=== PATIENT | female | born 1965 | race Caucasian/White ===

== ENCOUNTER 2018-02-08 15:50 | Emergency (ER) | payer BC ==
[~2018-02-08] VITALS: Ht 157.5 cm; Wt 69.0 kg
[~2018-02-08 15:50] MED LIST: IBUP-232 PO; LEVO75TA3 PO; PARO20TA3 PO; VENL75TA PO
[2018-02-08 15:54] VITALS: BP 163/86; PULSE 70; RESP 20; TEMP 97.9; O2SAT 99
[2018-02-08 18:43] LABS: AUTOMATED NEUTROPHIL # 4.4 TH/MM3 (1.8-7.7); BASOPHIL % 0.2 % (0.0-2.0); EOSINOPHIL % 0.2 % (0.0-4.0); HEMATOCRIT 37.6 % (35.0-46.0); HEMOGLOBIN 13.4 GM/DL (11.6-15.3); LYMPH % 26.6 % (9.0-44.0); LYMPHOCYTE # 1.8 TH/MM3 (1.0-4.8); MEAN CELL VOLUME 87.6 FL (80.0-100.0); MEAN CORPUSCULAR HEMOGLOBIN 31.1 PG (27.0-34.0); MEAN CORPUSCULAR HGB CONC 35.5 % (32.0-36.0); MEAN PLATELET VOLUME 9.2 FL (7.0-11.0); MONO % 8.3 % (0.0-8.0); MONOCYTE # 0.6 TH/MM3 (0-0.9); NEUT % 64.7 % (16.0-70.0); PLATELET COUNT 278 TH/MM3 (150-450); RED CELL DISTRIBUTION WIDTH 13.9 % (11.6-17.2); WHITE BLOOD COUNT 6.8 TH/MM3 (4.0-11.0)
[2018-02-08 19:01] LABS: ALT (GPT) 27 U/L (10-53)
[2018-02-08 19:04] LABS: ALKALINE PHOSPHATASE 92 U/L (45-117); TOTAL BILIRUBIN ADULT 0.2 MG/DL (0.2-1.0); TOTAL PROTEIN 7.6 GM/DL (6.4-8.2)
[2018-02-08 19:06] LABS: ALBUMIN 3.6 GM/DL (3.4-5.0); AST (GOT) 23 U/L (15-37); BLOOD UREA NITROGEN 23 MG/DL (7-18); CALCIUM 9.7 MG/DL (8.5-10.1); CHLORIDE 108 MEQ/L (98-107); CREATININE 0.75 MG/DL (0.50-1.00); GLOMERULAR FILTRATION RATE 81 ML/MIN (>89); GLUCOSE,RANDOM 84 MG/DL (74-106); SODIUM (NA) 143 MEQ/L (136-145)
[2018-02-08] MEDS ORDERED: IOHEXOL 350 MG/ML 10 ML VIAL (for RAD DIAG) IVCONTRAST ONE (19:27)
[2018-02-08 19:31] VITALS: BP 158/92; PULSE 62; RESP 17; O2SAT 99
--- NOTE | 2018-02-08 19:53 | RADRPT ---
EXAM DATE: 02/08/2018 7:26 PM EDT AGE/SEX: 52 years / Female INDICATIONS: Painful lump to left chest for three days. CLINICAL DATA: This is the patient's initial encounter. Patient reports that signs and symptoms have been present for 3 days and indicates a pain score of 3/10. MEDICAL/SURGICAL HISTORY: None. None. RADIATION DOSE: 6.83 CTDI (mGy) COMPARISON: No prior [place] exams available for comparison. TECHNIQUE: Multiple contiguous axial images were obtained through the chest during bolus infusion of 71 ml Omnipaque 350 (iohexol) nonionic water-soluble contrast as a single exam dose. Images were obtained in suspended respiration using multiple row detector helical technique. Using automated exp osure control and adjustment of the mA and/or kV according to patient size, radiation dose was kept a s low as reasonably achievable to obtain optimal diagnostic quality images. FINDINGS: Lungs: No consolidation or pneumothorax. No concerning pulmonary nodule is identified. Mediastinum: The heart and great vessels demonstrate no acute abnormality. No lymphadenopathy is pre sent. Pleurae: No pleural effusion or pleural thickening. Axillae: No lymphadenopathy. Musculoskeletal: The bones and soft tissues demonstrate no acute abnormality. Miscellaneous: A marker was placed on the medial left superior chest. At this location there is mild skin thickening and a 9 mm subcutaneous nodule with surrounding inflammation in the subcutaneous fat . Inflammatory changes are limited to the subcutaneous tissues but extend near the anterior aspect of the pectoralis major muscle but does not appear to involve the muscle or extend into any of the deep er tissues. There are calcified stones in the gallbladder. A small hiatal hernia is present. CONCLUSION: 1. The painful lump corresponds to skin thickening and a 9 mm subcutaneous nodule at the medial supe rior left chest wall. There is surrounding inflammatory change in the subcutaneous fat. Etiology is u ncertain but this is very likely represents some sort of inflammatory or infectious lesion. Suggest f ollow-up to confirm resolution. 2. Nonacute findings include cholelithiasis and small hiatal hernia. Electronically signed by: Nate Forbes MD 02/08/2018 7:52 PM EDT
[2018-02-08] MEDS ORDERED: CLIN300C5 PO (20:18)
--- NOTE | 2018-02-08 20:18 | PD ---
HPI Chief Complaint: Skin Problem Time Seen by Provider: 17:36 Travel History International Travel<30 days: No Contact w/Intl Traveler<30days: No Traveled to known affect area: No History of Present Illness HPI Patient is a 52-year-old female who comes in complaining of a painful lump to her chest wall. She says it started 3 or 4 days ago and has become more painful. She has not taken anything for the pain. She has not noticed any oozing of pus from the area. She denies fever chills. She has never had this before. Severity is mild to moderate. PFSH Past Medical History Anxiety: Yes Diminished Hearing: No Thyroid Disease: Yes Tetanus Vaccination: > 5 Years Influenza Vaccination: No ?: Not Menopausal: Yes : 2 Para: 1 Miscarriage: 1 Ovarian Cysts: Yes (L? REMOVED) Past Surgical History Appendectomy: Yes Social History Alcohol Use: No Tobacco Use: No Substance Use: No Allergies-Medications (Allergen,Severity, Reaction): Coded Allergies: No Known Allergies (Unverified Adverse Reaction, Unknown, 10/08/17) Reported Meds & Prescriptions Reported Meds & Active Scripts Active Effexor (Venlafaxine HCl) 75 Mg Tab 75 Mg PO Q12H Take 1/2 tablet twice daily x2 weeks, then increase to 1 tablet twice daily after Levothyroxine (Levothyroxine Sodium) 75 Mcg Tab 75 Mcg PO DAILY Review of Systems Except as stated in HPI: all other systems reviewed are Neg General / Constitutional: No: Fever, Chills HENT: No: Headaches, Lightheadedness Cardiovascular: No: Chest Pain or Discomfort Respiratory: No: Shortness of Breath Gastrointestinal: No: Nausea, Vomiting Skin: Positive Lesions Neurologic: No: Weakness, Dizziness Physical Exam Narrative GENERAL: Awake and alert, in no acute distress. SKIN: Hard nodule on the left upper chest wall with mild surrounding erythema. There is no fluctuance or induration. HEAD: Atraumatic. Normocephalic. EYES: Pupils equal and round. No scleral icterus. ENT: Mucous membranes pink and moist. NECK: Trachea midline. No JVD. CARDIOVASCULAR: Regular rate and rhythm. No murmur appreciated. RESPIRATORY: No accessory muscle use. Clear to auscultation. Breath sounds equal bilaterally. GASTROINTESTINAL: Abdomen soft, non-tender, nondistended. MUSCULOSKELETAL: No obvious deformities. No clubbing. No cyanosis. No edema. NEUROLOGICAL: Awake and alert. No obvious cranial nerve deficits. Motor grossly within normal limits. Normal speech. PSYCHIATRIC: Appropriate mood and affect; insight and judgment normal. Data Data Last Documented VS Vital Signs Date Time Temp Pulse Resp B/P (MAP) Pulse Ox O2 Delivery O2 Flow Rate FiO2 02/08/18 19:31 62 17 158/92 (114) 99 Room Air 02/08/18 15:54 97.9 Orders Orders Complete Blood Count With Diff (02/08/18 17:54) Comprehensive Metabolic Panel (02/08/18 17:54) Ct Thorax/ Chest W Iv Contrast (02/08/18 ) Iv Access Insert/Monitor (02/08/18 17:54) Iohexol 350 Inj (Omnipaque 350 Inj) (02/08/18 19:27) Labs Laboratory Tests Test 02/08/18 18:00 White Blood Count 6.8 TH/MM3 Red Blood Count 4.30 MIL/MM3 Hemoglobin 13.4 GM/DL Hematocrit 37.6 % Mean Corpuscular Volume 87.6 FL Mean Corpuscular Hemoglobin 31.1 PG Mean Corpuscular Hemoglobin Concent 35.5 % Red Cell Distribution Width 13.9 % Platelet Count 278 TH/MM3 Mean Platelet Volume 9.2 FL Neutrophils (%) (Auto) 64.7 % Lymphocytes (%) (Auto) 26.6 % Monocytes (%) (Auto) 8.3 % Eosinophils (%) (Auto) 0.2 % Basophils (%) (Auto) 0.2 % Neutrophils # (Auto) 4.4 TH/MM3 Lymphocytes # (Auto) 1.8 TH/MM3 Monocytes # (Auto) 0.6 TH/MM3 Eosinophils # (Auto) 0.0 TH/MM3 Basophils # (Auto) 0.0 TH/MM3 CBC Comment DIFF FINAL Differential Comment Blood Urea Nitrogen 23 MG/DL Creatinine 0.75 MG/DL Random Glucose 84 MG/DL Total Protein 7.6 GM/DL Albumin 3.6 GM/DL Calcium Level 9.7 MG/DL Alkaline Phosphatase 92 U/L Aspartate Amino Transf (AST/SGOT) 23 U/L Alanine Aminotransferase (ALT/SGPT) 27 U/L Total Bilirubin 0.2 MG/DL Sodium Level 143 MEQ/L Potassium Level 4.0 MEQ/L Chloride Level 108 MEQ/L Carbon Dioxide Level 27.0 MEQ/L Anion Gap 8 MEQ/L Estimat Glomerular Filtration Rate 81 ML/MIN MDM Medical Decision Making Medical Screen Exam Complete: Yes Emergency Medical Condition: Yes Medical Record Reviewed: Yes Differential Diagnosis Enlarged lymph node versus abscess versus cellulitis Narrative Course Patient is a 52-year-old female comes in complaining of a lump to her left chest wall. Exam shows a tender nodule that is slightly erythematous. IV established, labs sent. Labs show no acute abnormalities. CT of the chest performed shows a nodule with surrounding inflammatory changes. Patient informed of the results. Last [address] 02/08/18 0000 Signed Impressions: CONCLUSION: 1. The painful lump corresponds to skin thickening and a 9 mm subcutaneous nod ule at the medial superior left chest wall. There is surrounding inflammatory c hange in the subcutaneous fat. Etiology is uncertain but this is very likely re presents some sort of inflammatory or infectious lesion. Suggest follow-up to c onfirm resolution. 2. Nonacute findings include cholelithiasis and small hiatal hernia. She will be discharged with a prescription for clindamycin. She has an appointment with her doctor on Sunday to follow-up. Advised return anytime for any worsening symptoms. Diagnosis Primary Impression: Lymph node enlargement Additional Impression: Cellulitis Qualified Codes: L03.313 - Cellulitis of chest wall Patient Instructions: Cellulitis (ED), General Instructions, Lymphadenopathy ( ED) Additional Instructions: Take all of your antibiotic. Follow-up with your doctor. Return to the ED as needed for any worsening symptoms. Scripts Clindamycin (Clindamycin) 300 Mg Cap 600 MG PO Q8H for Infection for 7 Days, #42 CAP 0 Refills Prov: Rahel Cantrell MD 02/08/18 Disposition: 01 DISCHARGE HOME Condition: Stable Rahel Cantrell MD Feb 08, 2018 20:18
== END 2018-02-08 20:31 | disposition home or self-care (01) ==
LOC: NEPD 15:50
DX: R59.9 Enlarged lymph nodes, unspecified (principal); L03.313 Cellulitis of chest wall; K80.20 Calculus of gallbladder without cholecystitis without obstruction; K44.9 Diaphragmatic hernia without obstruction or gangrene; F41.9 Anxiety disorder, unspecified; E07.9 Disorder of thyroid, unspecified; Z79.899 Other long term (current) drug therapy
CPT/HCPCS: 71260; 80053; 85025; 99284; Q9967

== ENCOUNTER 2018-02-13 11:32 | Emergency (ER) | payer BC ==
[~2018-02-13] VITALS: Ht 157.5 cm; Wt 69.0 kg
[~2018-02-13 11:32] MED LIST changes: +CLIN300C5 PO; -IBUP-232 PO; -PARO20TA3 PO
[2018-02-13 11:41] VITALS: BP 128/75; PULSE 76; RESP 16; TEMP 98; O2SAT 97
--- NOTE | 2018-02-13 12:05 | PD ---
HPI Chief Complaint: Abdominal Pain Time Seen by Provider: 12:04 Travel History International Travel<30 days: Yes Contact w/Intl Traveler<30days: [place] Traveled to: [facility] Traveled to known affect area: No History of Present Illness HPI 52-year-old female came to the emergency room with history of epigastric pain for past 2 days that comes and goes. It feels like a tight knot in her epigastric region when the pain comes and makes a double over. The pain is 10 out of 10 when she gets the attack. In between the pain is about 6-7. Currently she describes the pain 7 out of 10. It is not radiating. Pain seems to get worse when she eats or drinks something. Patient says that a few years ago during an MRI she was told that she has gallstones in her gallbladder and sometime in future she may get an attack from that. No history of nausea vomiting. Vital signs otherwise stable. Patient was in the emergency room 4 days ago for some chest symptoms and a CAT scan of the chest showed an inflammation of her lymph node in the chest. She was discharged home on clindamycin. Patient is wondering if the clindamycin could be the reason for these symptoms. Patient says that she looked at the side effects of clindamycin and noticed that a lot of her symptoms were related to that. Vital signs were stable. [facility] Past Medical History Narrative Medical List of her past medical, surgical, social and family history is reviewed from the nursing note Anxiety: Yes Diminished Hearing: No Thyroid Disease: Yes ?: Unknown LMP: couple of years ago Menopausal: Yes : 2 Para: 1 Miscarriage: 1 Ovarian Cysts: Yes (L? REMOVED) Past Surgical History Appendectomy: Yes Social History Alcohol Use: No Tobacco Use: No Substance Use: No Allergies-Medications (Allergen,Severity, Reaction): Coded Allergies: No Known Allergies (Verified Adverse Reaction, Unknown, 02/13/18) Comments No known drug allergies Reported Meds & Prescriptions Reported Meds & Active Scripts Active Hydrocodone-Acetaminophen 5-325 mg Tab 1 Tab PO Q6H PRN Zofran Odt (Ondansetron Odt) 4 Mg Tab 4 Mg SL Q6HR PRN Colace (Docusate Sodium) 100 Mg Capsule 100 Mg PO BID Omeprazole 20 Mg Tab 20 Mg PO DAILY Clindamycin (Clindamycin HCl) 300 Mg Cap 600 Mg PO Q8H 7 Days Effexor (Venlafaxine HCl) 75 Mg Tab 75 Mg PO Q12H Take 1/2 tablet twice daily x2 weeks, then increase to 1 tablet twice daily after Levothyroxine (Levothyroxine Sodium) 75 Mcg Tab 75 Mcg PO DAILY Narrative Medication List of her home medications reviewed from the nursing note Review of Systems Except as stated in HPI: all other systems reviewed are Neg Gastrointestinal: Positive: Abdominal Pain Physical Exam Narrative GENERAL: Awake, alert, moderate distress SKIN: Focused skin assessment warm/dry. HEAD: Atraumatic. Normocephalic. EYES: Pupils equal and round. No scleral icterus. No injection or drainage. ENT: No nasal bleeding or discharge. Mucous membranes pink and moist. NECK: Trachea midline. No JVD. CARDIOVASCULAR: Regular rate and rhythm. No murmur appreciated. RESPIRATORY: No accessory muscle use. Clear to auscultation. Breath sounds equal bilaterally. GASTROINTESTINAL: Abdomen soft, moderate tenderness on deep palpation at the epigastric and right upper quadrant area, nondistended. Hepatic and splenic margins not palpable. MUSCULOSKELETAL: No obvious deformities. No clubbing. No cyanosis. No edema. NEUROLOGICAL: Awake and alert. No obvious cranial nerve deficits. Motor grossly within normal limits. Normal speech. PSYCHIATRIC: Appropriate mood and affect; insight and judgment normal. Data Data Last Documented VS Orders Orders Complete Blood Count With Diff (02/13/18 12:15) Comprehensive Metabolic Panel (02/13/18 12:15) Lipase (02/13/18 12:15) Urinalysis - C+S If Indicated (02/13/18 12:15) Us Abdomen Gallbladder (02/13/18 ) Iv Access Insert/Monitor (02/13/18 12:15) Ecg Monitoring (02/13/18 12:15) Oximetry (02/13/18 12:15) Pantoprazole Inj (Protonix Inj) (02/13/18 12:15) Sodium Chlor 0.9% 1000 Ml Inj (Ns 1000 M (02/13/18 12:15) Sodium Chloride 0.9% Flush (Ns Flush) (02/13/18 12:15) Ed Discharge Order (02/13/18 14:26) Labs Laboratory Tests Test 02/13/18 12:40 6/6/18 13:45 White Blood Count 8.6 TH/MM3 Red Blood Count 4.67 MIL/MM3 Hemoglobin 14.0 GM/DL Hematocrit 40.9 % Mean Corpuscular Volume 87.6 FL Mean Corpuscular Hemoglobin 30.0 PG Mean Corpuscular Hemoglobin Concent 34.2 % Red Cell Distribution Width 13.8 % Platelet Count 305 TH/MM3 Mean Platelet Volume 9.0 FL Neutrophils (%) (Auto) 77.9 % Lymphocytes (%) (Auto) 14.8 % Monocytes (%) (Auto) 6.9 % Eosinophils (%) (Auto) 0.1 % Basophils (%) (Auto) 0.3 % Neutrophils # (Auto) 6.7 TH/MM3 Lymphocytes # (Auto) 1.3 TH/MM3 Monocytes # (Auto) 0.6 TH/MM3 Eosinophils # (Auto) 0.0 TH/MM3 Basophils # (Auto) 0.0 TH/MM3 CBC Comment DIFF FINAL Differential Comment Blood Urea Nitrogen 23 MG/DL Creatinine 0.75 MG/DL Random Glucose 92 MG/DL Total Protein 7.8 GM/DL Albumin 3.8 GM/DL Calcium Level 10.1 MG/DL Alkaline Phosphatase 84 U/L Aspartate Amino Transf (AST/SGOT) 36 U/L Alanine Aminotransferase (ALT/SGPT) 34 U/L Total Bilirubin 0.5 MG/DL Sodium Level 140 MEQ/L Potassium Level 3.5 MEQ/L Chloride Level 104 MEQ/L Carbon Dioxide Level 25.1 MEQ/L Anion Gap 11 MEQ/L Estimat Glomerular Filtration Rate 81 ML/MIN Lipase 69 U/L Urine Color COLORLESS Urine Turbidity CLEAR Urine pH 6.0 Urine Specific [place] 1.004 Urine Protein NEG mg/dL Urine Glucose (UA) NEG mg/dL Urine Ketones NEG mg/dL Urine Occult Blood NEG Urine Nitrite NEG Urine Bilirubin NEG Urine Urobilinogen LESS THAN 2.0 MG/DL Urine Leukocyte Esterase NEG Urine RBC LESS THAN 1 /hpf Urine WBC 2 /hpf Urine Squamous Epithelial Cells 1 /hpf Microscopic Urinalysis Comment CULT NOT INDICATED MDM Medical Decision Making Medical Screen Exam Complete: Yes Emergency Medical Condition: Yes Medical Record Reviewed: Yes Differential Diagnosis Acute cholecystitis, biliary colic, acute gastritis Narrative Course 1:42 PM blood test results are back and within normal limit. Awaiting for the UA and ultrasound report. Patient was given IV Protonix. I will go and reassess her. 2:26 PM UA is within normal limits. Ultrasound shows stones in the gallbladder but otherwise no signs of cholecystitis. Patient will be discharged home with pain medication prescription. Procedures EKG Prior to Arrival: No Diagnosis Primary Impression: Biliary colic Referrals: Primary Care Physician 2 days Additional Instructions: Please follow-up with your primary care physician and get a referral to a surgeon to schedule a surgery to have the gallbladder possibly taken out. Do not eat food that is greasy or high in fat content. Return to the ER if condition worsens any other new concerns. Take the medication as per the prescription direction. The pain medication may cause constipation and hence a laxative has been prescribed to you as well. Med/Other Pt SpecificInfo: Prescription(s) given Scripts Hydrocodone-Acetaminophen (Hydrocodone-Acetaminophen) 5-325 mg Tab 1 TAB PO Q6H Y for PAIN, #15 TAB 0 Refills Prov: Salinas Madrigal MD 02/13/18 Ondansetron Odt (Zofran Odt) 4 Mg Tab 4 MG SL Q6HR Y for Nausea/Vomiting, #15 TAB 0 Refills Prov: Salinas Madrigal MD 02/13/18 Docusate Sodium (Colace) 100 Mg Capsule 100 MG PO BID for Prevent Constipation, #20 CAP 0 Refills Prov: Salinas Madrigal MD 02/13/18 Omeprazole (Omeprazole) 20 Mg Tab 20 MG PO DAILY, #30 TAB 0 Refills Prov: Salinas Madrigal MD 02/13/18 Disposition: 01 DISCHARGE HOME Condition: Stable Salinas Madrigal MD Feb 13, 2018 12:05
[2018-02-13] MEDS ORDERED: SODIUM CHLORIDE 0.9% FLUSH 10 ML FLUSH IV FLUSH PRN (12:15)
[2018-02-13] MEDS ORDERED: SODIUM CHLOR 0.9% 1000 ML INJ 1,000 ML IV SCH (12:15)
[2018-02-13] MEDS ORDERED: PANTOPRAZOLE SODIUM 40 MG VIAL IVP ONE (12:15)
[2018-02-13 12:21] VITALS: O2SAT 99
[2018-02-13 13:18] LABS: AUTOMATED NEUTROPHIL # 6.7 TH/MM3 (1.8-7.7); BASOPHIL % 0.3 % (0.0-2.0); EOSINOPHIL % 0.1 % (0.0-4.0); HEMATOCRIT 40.9 % (35.0-46.0); LYMPH % 14.8 % (9.0-44.0); LYMPHOCYTE # 1.3 TH/MM3 (1.0-4.8); MEAN CELL VOLUME 87.6 FL (80.0-100.0); MEAN CORPUSCULAR HGB CONC 34.2 % (32.0-36.0); MONO % 6.9 % (0.0-8.0); MONOCYTE # 0.6 TH/MM3 (0-0.9); NEUT % 77.9 % (16.0-70.0); PLATELET COUNT 305 TH/MM3 (150-450); RED BLOOD COUNT 4.67 MIL/MM3 (4.00-5.30); RED CELL DISTRIBUTION WIDTH 13.8 % (11.6-17.2); WHITE BLOOD COUNT 8.6 TH/MM3 (4.0-11.0)
[2018-02-13 13:24] LABS: ALBUMIN 3.8 GM/DL (3.4-5.0); AST (GOT) 36 U/L (15-37); BICARBONATE 25.1 MEQ/L (21.0-32.0); BLOOD UREA NITROGEN 23 MG/DL (7-18); CALCIUM 10.1 MG/DL (8.5-10.1); CHLORIDE 104 MEQ/L (98-107); CREATININE 0.75 MG/DL (0.50-1.00); GLOMERULAR FILTRATION RATE 81 ML/MIN (>89); GLUCOSE,RANDOM 92 MG/DL (74-106); SODIUM (NA) 140 MEQ/L (136-145)
[2018-02-13 13:25] LABS: ALT (GPT) 34 U/L (10-53)
[2018-02-13 13:28] LABS: ALKALINE PHOSPHATASE 84 U/L (45-117); TOTAL BILIRUBIN ADULT 0.5 MG/DL (0.2-1.0); TOTAL PROTEIN 7.8 GM/DL (6.4-8.2)
[2018-02-13 14:14] LABS: BILIRUBIN, URINE NEG (NEG); BLOOD, URINE NEG (NEG); GLUCOSE,URINE NEG (NEG); KETONE, URINE NEG (NEG); NITRITE,URINE NEG (NEG); SQUAMOUS EPITHELIAL CELL URINE 1 /hpf (0-5); URINE COLOR COLORLESS (YELLW/STRAW); URINE LEUKOCYTE ESTERASE NEG (NEG)
--- NOTE | 2018-02-13 14:23 | RADRPT ---
EXAM DATE: 02/13/2018 1:14 PM EDT AGE/SEX: 52 years / Female INDICATIONS: RUQ pain. CLINICAL DATA: This is the patient's initial encounter. Patient reports that signs and/or symptoms h ave been present for 1 day and indicates a pain score of 5/10. MEDICAL/SURGICAL HISTORY: . Thyroid disease. Ovarian cysts. Anxiety. Appendectomy. COMPARISON: [facility] [place] [facility]AX W CONTRAST, 02/08/2018. . No external comparison. MEASUREMENTS (cm x cm x cm): Liver:__ 15.4 cm length Common Bile Duct:__ 7mm FINDINGS: Liver: Echotexture is within normal limits. No focal lesion is seen. Portal Vein: Hepatopedal flow seen in portal vein. Common Duct: No intraluminal mass or stone visualized. Gallbladder: Multiple mobile stones are present within the gallbladder. No wall thickening or perich olecystic fluid is present. Sonographic Murrell sign is negative. Pancreas: The visualized portions are within normal limits Right Kidney: No mass or hydronephrosis Other: None. CONCLUSION: 1. Cholelithiasis. However, there are no additional features to suggest acute cholecystitis. 2. Remainder of the examination is within normal limits. Electronically signed by: Nate Forbes MD 02/13/2018 2:21 PM EDT
[2018-02-13] MEDS ORDERED: COLA100C5 PO (14:31)
[2018-02-13] MEDS ORDERED: ZOFR4TAB3 SL (14:31)
[2018-02-13] MEDS ORDERED: HYDR-3516 PO (14:31)
[2018-02-13] MEDS ORDERED: OMEP20TA93 PO (14:31)
== END 2018-02-13 15:45 | disposition home or self-care (01) ==
LOC: NEPD 11:32
DX: K80.70 Calculus of gallbladder and bile duct without cholecystitis without obstruction (principal); E07.9 Disorder of thyroid, unspecified
CPT/HCPCS: 76705; 80053; 81001; 83690; 85025; 96361; 96374; 99284; C9113; J7030